=== PATIENT | male | born 1980 ===

== ENCOUNTER 2020-08-26 12:16 | Emergency (ER) | payer SELFPAY ==
[~2020-08-26 12:16] MED LIST: Calcium Chloride 1 GM/10 ML Abboject SYRINGE ONE; EPINEPHrine 1 MG/10 ML Abboject SYRINGE ONE; Sodium Bicarb 50 MEQ/50 ML Abboject 8.4% SYRINGE ONE
== END 2020-08-26 12:23 | disposition expired ==
LOC: EDAGE 12:16 → ERS 12:16 → EDBD 12:16 → ERS 12:23
DX: I46.9 Cardiac arrest, cause unspecified (principal); V49.9XXA Car occupant (driver) (passenger) injured in unspecified traffic accident, initial encounter
CPT/HCPCS: 32551; 92950; 96374; 96375; G0390; J0171